=== PATIENT | male | born 1950 | race Caucasian/White ===

== ENCOUNTER 2018-10-24 06:26 | Emergency (ER) | payer SELFPAY ==
[2018-10-24] MEDS: ACETAMINOPHEN 325 MG TAB PO (07:11)
== END 2018-10-24 08:24 | disposition home or self-care (01) ==
LOC: FTE 06:26
DX: M54.2 Cervicalgia (principal); M54.5 Low back pain; I10 Essential (primary) hypertension
CPT/HCPCS: 72040; 72100; 99283-25